=== PATIENT | male | born 1985 | race Caucasian/White ===

== ENCOUNTER 2022-03-27 02:28 | Emergency (ER) | payer OTHER, SELFPAY ==
[2022-03-27 02:34] VITALS: BP 145/94; PULSE 99; RESP 20; TEMP 36.5; O2SAT 100
--- NOTE | 2022-03-27 03:15 | ECG_ITS ---
Measurements Intervals [place] Rate: 89 P: 42 MD: 151 QRS: 55 QRSD: 93 T: 12 QT: 336 QTc: 409 Interpretive Statements SINUS RHYTHM NO PREVIOUS ECG AVAILABLE FOR COMPARISON Electronically Signed On 03-27-2022 8:40:39 [employer] by Sharon Saavedra M.D.
--- NOTE | 2022-03-27 04:18 | ED.GENADULT ---
HPI - General Adult General Chief complaint: Anxiety Stated complaint: panic attack/ chest pain/ Time Seen by Provider: 03/27/22 03:23 History of Present Illness HPI narrative: this is a 36-year-old male with history of panic attacks common ED after a panic attack. Patient says that 1:00 p.m. he started to feel his typical panic attack coming on. Usually if he is able to control it with breathing exercises but this time it became overwhelming. Afterwards patient said that he felt off. These feelings included some chest discomfort. patient says the chest pain and discomfort is a dull/ throbbing that is nonradiating, 1 on 10 intensity and constant. He has never experienced pain like this before there are no exacerbating or alleviating factors. There is no radiation, nausea vomiting diaphoresis or exertional component. Patient notes he is under significant stress at work and at home. Related Data Allergies Allergy/AdvReac Type Severity Reaction Status Date / Time No Known Allergies Allergy Verified 03/27/22 02:37 [facility] Past Medical History Medical History (Updated 03/27/22 @ 04:28 by Adam Miner MD) Panic attack Surgical History Surgical History (Updated 03/27/22 @ 04:23 by Adam Miner MD) H/O anterior cruciate ligament surgery Social History Social History (Updated 03/27/22 @ 04:23 by Adam Miner MD) Social History: Denies use of alcohol drugs or tobacco Exam Narrative: APPEARANCE: No apparent distress. patient is sitting calmly in bed Head: atraumatic. EYES: EOMI, NOSE: Atraumatic NECK: Trachea midline RESPIRATORY: No increased rate of breathing, clear to auscultation bilat CARDIOVASCULAR: RRR, no peripheral edema ABDOMINAL: Non-distended, nontender no guarding rebound MUSCULOSKELETAl: No obvious deformities NEURO: Alert. Moving 4/4 extremities SKIN:: Warm, dry. Normal color PSYCHIATRIC: calm Course Vital Signs Vital signs: Vital Signs Temperature 97.7 F 03/27/22 02:34 Pulse Rate 99 03/27/22 02:34 Respiratory Rate 20 03/27/22 02:34 Blood Pressure 145/94 H 03/27/22 02:34 Pulse Oximetry 100 03/27/22 02:34 Oxygen Delivery Room Air 03/27/22 02:34 Temperature 97.7 F 03/27/22 02:34 Pulse Rate 99 03/27/22 02:34 Respiratory Rate 20 03/27/22 02:34 Blood Pressure 145/94 H 03/27/22 02:34 Pulse Oximetry 100 03/27/22 02:34 Oxygen Delivery Room Air 03/27/22 02:34 Medical Decision Making MDM Narrative Medical decision making narrative: -Presentation: 28-year-old male presenting to ED after a panic attack. 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 After discussing the patient's symptoms I did offer lab work including troponin and a chest x-ray. The patient declined. the patient is comfortable going home at this time. -Procedures: None -Interventions: 1 mg Ativan -Shared decision making / Disposition: I discussed the patient's symptoms with him. His symptoms have since resolved. He was offered a chest pain workup as he did describe some chest discomfort but he has declined. He would like to go home and rest. As a 36-year-old male with no medical history outside of panic attacks I believe this is reasonable. If his condition is to worse
[2022-03-27] MEDS: LORazepam (*CRX) 1 MG TABLET PO (04:34)
[2022-03-27 04:37] VITALS: BP 134/87; PULSE 85; RESP 16; O2SAT 98
== END 2022-03-27 04:40 | disposition home or self-care (01) ==
PROVIDERS: Emergency Provider Emergency Medicine
DX: F41.0 Panic disorder [episodic paroxysmal anxiety] (principal)
CPT/HCPCS: 93005; 99283; A9270